=== PATIENT | male | born 1980 | race Two or more races ===

== ENCOUNTER 2018-01-03 07:05 | Emergency (ER) | payer SELFPAY ==
[2018-01-03 07:36] LABS: ADD MAN DIFF? NO
[2018-01-03 07:41] LABS: BASO % 0 % (0-3); EOS % 0 % (0-3); HEMATOCRIT 42.8 % (39.0-53.0); HEMOGLOBIN 14.9 g/dL (13.0-17.5); LYMPH # 1.2 x10^3/uL (1.0-4.8); LYMPH % 11 % (24-48); MEAN CORPUSCULAR HEMOGLOBIN 28 pg (25-35); MEAN CORPUSCULAR HGB CONC 35 g/dL (31-37); MEAN CORPUSCULAR VOLUME 79 fL (79-100); MONO # 0.6 x10^3/uL (0.0-1.1); MONO % 6 % (0-9); NEUT # 8.9 x10^3uL (1.8-7.7); NEUT % 83 % (31-73); PLATELET COUNT 293 x10^3/uL (140-400); RED CELL DISTRIBUTION WIDTH 14.2 % (11.5-14.5); WHITE BLOOD COUNT 10.7 x10^3/uL (4.0-11.0)
[2018-01-03 07:55] LABS: ANION GAP 9 (6-14); BLOOD UREA NITROGEN 13 mg/dL (8-26); BUN/CREATININE RATIO 13 (6-20); CALCIUM 9.1 mg/dL (8.5-10.1); CARBON DIOXIDE 29 mmol/L (21-32); CHLORIDE 101 mmol/L (98-107); GFR 84.1; GLUCOSE 126 mg/dL (70-99); POTASSIUM 3.8 mmol/L (3.5-5.1); SODIUM 139 mmol/L (136-145)
[2018-01-03 08:00] LABS: ALK PHOS 108 U/L (46-116); ALT (SGPT) 80 U/L (16-63); AST (SGOT) 30 U/L (15-37); LIPASE 100 U/L (73-393); TOTAL BILIRUBIN 0.5 mg/dL (0.2-1.0); TOTAL PROTEIN 8.1 g/dL (6.4-8.2)
[2018-01-03] MEDS ORDERED: CONTRAST GIVEN MC (08:00)
[2018-01-03 08:03] LABS: BILIRUBIN,URINE NEGATIVE (NEG); CLARITY,URINE CLEAR; COLOR,URINE YELLOW; GLUCOSE,URINE NEGATIVE (NEG); NITRITE,URINE NEGATIVE (NEG); PROTEIN,URINE NEGATIVE (NEG-TRACE); UROBILINOGEN,URINE 0.2 mg/dL (0.2 mg/dL)
[2018-01-03 08:13] LABS: RBC,URINE >40 /HPF (0-2); SQUAMOUS EPITHELIAL CELL,UR OCC /LPF
[2018-01-03 08:14] LABS: BACTERIA,URINE FEW /HPF (0-FEW)
[2018-01-03] MEDS: IOHEXOL 300 MG/ML 100ML VIAL. IV (08:20)
[2018-01-03] MEDS: ONDANSETRON PF 4 MG/2 ML VIAL. IV (09:09)
[2018-01-03] MEDS: KETOROLAC 30 MG/ML INJ. IV (09:10)
[2018-01-03] MEDS: MORPHINE SULFATE 4 MG/ML DISP.SYRIN. IV (09:10)
== END 2018-01-03 09:49 | disposition home or self-care (01) ==
LOC: ER 07:05
DX: N20.2 Calculus of kidney with calculus of ureter (principal)
CPT/HCPCS: 36415; 74177; 80053; 81001; 83690; 85025; 96374; 96375; 99285-25; J1885; J2270; J2405; Q9967